=== PATIENT | male | born 1955 | race Caucasian/White ===

== ENCOUNTER 2019-07-17 05:40 | Observation (INO) | payer MEDICARE, OTHER ==
[2019-07-11 18:38] VITALS: BMI 25.2
[2019-07-17] VITALS (24 sets, daily range): BP systolic 124–180; BP diastolic 69–106; PULSE 53–102; RESP 16–25; Ht 190.5 cm; Wt 89.3 kg
[~2019-07-17] VITALS: Ht 190.5 cm; Wt 89.3 kg
[~2019-07-17 05:40] MED LIST: APIX5TAB PO
[2019-07-17] MEDS ORDERED: LACTATED RINGER'S 1,000 ML IV SCH (06:30)
[2019-07-17] MEDS ORDERED: CEFAZOLIN 1 GM INJ ONE (06:55)
[2019-07-17] MEDS ORDERED: LIDOCAINE 2% (SDV) 5 ML INJ ONE (06:55)
[2019-07-17] MEDS ORDERED: PROPOFOL 200 MG INJ ONE (06:55)
[2019-07-17] MEDS ORDERED: EPHEDrine 25 MG/5 ML SYG ONE (06:55)
[2019-07-17] MEDS ORDERED: GLYCOPYRROLATE 0.4 MG INJ ONE (06:55)
[2019-07-17] MEDS ORDERED: SUCCINYLCHOLINE CHLORIDE 100 MG/5 ML SYG IV ONE (06:56)
[2019-07-17] MEDS ORDERED: ONDANSETRON 4 MG INJ ONE (06:56)
[2019-07-17] MEDS ORDERED: DEXAMETHASONE 4 MG/ML 5 ML INJ ONE ×2 (06:56→11:29)
[2019-07-17] MEDS ORDERED: MIDAZOLAM 1 MG/ML 2 ML INJ ONE (06:56)
[2019-07-17] MEDS ORDERED: ROCURONIUM 50 MG INJ ONE (06:56)
[2019-07-17] MEDS ORDERED: ROPIVACAINE 0.5 % 30 ML VIAL ONE ×2 (06:57)
[2019-07-17] MEDS ORDERED: POLYMYXIN/BACITRACIN 1L IRRIG ONE (06:57)
[2019-07-17] MEDS ORDERED: NEOMYC/POLYMYX/BACIT 30 GM OINT ONE (10:59)
[2019-07-17] MEDS ORDERED: SUGAMMADEX SODIUM 200 MG/2 ML VIAL IV ONE (11:34)
[2019-07-17] MEDS ORDERED: HYDROmorphONE 0.2 MG/ML PCA IV SCH (12:00)
[2019-07-17] MEDS ORDERED: morphine 10 MG INJ IV PRN (12:00)
[2019-07-17] MEDS ORDERED: DIPHENHYDRAMINE 25 MG CAP PO PRN (12:00)
[2019-07-17] MEDS ORDERED: ONDANSETRON 4 MG INJ IV PRN ×2 (12:00→13:30)
[2019-07-17] MEDS ORDERED: BISACODYL 10 MG SUPP PR PRN (12:00)
[2019-07-17] MEDS ORDERED: OXYCODONE/ACETAMINOPHEN (5/325) TAB PO PRN ×2 (12:00→13:30)
[2019-07-17] MEDS ORDERED: hydrALAzine 20 MG INJ IV PRN (13:30)
[2019-07-17] MEDS ORDERED: LABETALOL HCL 20MG INJ IV PRN (13:30)
[2019-07-17] MEDS ORDERED: DIPHENHYDRAMINE 50 MG INJ IV PRN (13:30)
[2019-07-17] MEDS ORDERED: MIDAZOLAM 1 MG/ML 2 ML INJ IV PRN (13:30)
[2019-07-17] MEDS ORDERED: FENTAnyl 50 MCG/ML VIAL IV PRN (13:30)
[2019-07-17] MEDS ORDERED: EPHEDrine 25 MG/5 ML SYG IV PRN (13:30)
[2019-07-17] MEDS ORDERED: MEPERIDINE 25 MG INJ IV PRN (13:30)
[2019-07-17] MEDS ORDERED: HYDROmorphONE 1 MG/5 ML IV SYRINGE IV PRN ×2 (13:30)
[2019-07-17] MEDS: SOD CHLORIDE 0.9% 1,000 ML IV SCH ×2 (15:10→15:13)
[2019-07-17] MEDS: CEFAZOLIN 1 GM/50 ML (PMX) 50 ML IVPB SCH (20:19)
[2019-07-17] MEDS: SENNA/DOCUSATE NA (8.6MG/50MG) TAB PO SCH (20:20)
[2019-07-17] MEDS ORDERED: TAMSULOSIN (SR) 0.4 MG CAP PO SCH (21:00)
[2019-07-18] MEDS ORDERED: HYDROmorphONE 0.2 MG/ML PCA IV SCH (00:35)
[2019-07-18] MEDS: SOD CHLORIDE 0.9% 1,000 ML IV SCH (01:15)
[2019-07-18 02:29] VITALS: BP 121/86; PULSE 86; RESP 18
[2019-07-18] MEDS: CEFAZOLIN 1 GM/50 ML (PMX) 50 ML IVPB SCH ×2 (03:26→11:18)
[2019-07-18 07:56] VITALS: BP 128/87; PULSE 67; RESP 18
[2019-07-18] MEDS: SENNA/DOCUSATE NA (8.6MG/50MG) TAB PO SCH (08:21)
[2019-07-18] MEDS ORDERED: APIXABAN 5 MG TABLET PO SCH ×2 (09:00)
[2019-07-19] MEDS ORDERED: MAGNESIUM HYDROXIDE 30ML CUP PO SCH (21:00)
== END 2019-07-18 14:35 | disposition home or self-care (01) ==
LOC: SDS 05:40 → REC 12:03 → INTOOBSV 12:03 → SDS 12:03 → MS1 13:21
PROVIDERS: ADMIT Orthopaedic Surgery; ATTEND Orthopaedic Surgery
DX: M19.072 Primary osteoarthritis, left ankle and foot (principal)
CPT/HCPCS: 27870; 29898; 73610; 80048; 83735; 84100; 85025; 97116; 97162; 97530; C1713; G0378; J0690; J1100; J1170; J2250; J2405; J2795; J3010; J7030; 99217